=== PATIENT | male | born 1990 | race Two or more races ===

== ENCOUNTER 2024-04-25 15:23 | Emergency (ER) | payer MEDICAID ==
[~2024-04-25] VITALS: Ht 182.9 cm; Wt 59.0 kg
[2024-04-25 15:40] VITALS: TEMP 98.3
[2024-04-25] MEDS ORDERED: ONDANSETRON HCL/PF 4 MG/2 ML VIAL ONE (16:08)
[2024-04-25] MEDS: ONDANSETRON HCL/PF 4 MG/2 ML VIAL IVP ONE (16:10)
[2024-04-25] MEDS: IV NS 0.9% 1,000 ML BAG IV ONE (16:10)
[2024-04-25 16:23] LABS: BASOPHILS % (AUTO) 0.2 % (0.0-2.0); EOSINOPHILS % (AUTO) 0.1 % (0.0-6.0); HEMATOCRIT 46 % (39-51); HEMOGLOBIN 16.1 g/dL (13.5-17.5); LYMPHOCYTES # (AUTO) 0.1 K/uL (0.8-4.8); LYMPHOCYTES % (AUTO) 1.3 % (20.0-44.0); MEAN CORPUSCULAR HEMOGLOBIN 30 PG (26.0-33.0); MEAN CORPUSCULAR HGB CONC 35 g/dl (31.0-36.0); MEAN CORPUSCULAR VOLUME 86 fL (80-96); MONOCYTES # (AUTO) 0.5 K/uL (0.1-1.30); MONOCYTES % (AUTO) 4.9 % (2.0-12.0); NEUTROPHILS # (AUTO) 9.7 K/uL (1.8-8.9); NEUTROPHILS % (AUTO) 93.5 % (43.0-81.0); PLATELET COUNT (AUTO) 170 K/uL (150-450); RED BLOOD CELL COUNT(AUTO) 5.39 MIL/uL (4.5-6.0); RED CELL DISTRIBUTION WIDTH 13.5 % (11.5-15.0); WHITE BLOOD COUNT (AUTO) 10.4 K/uL (4.3-11.0)
[2024-04-25 16:36] LABS: BILIRUBIN,DIRECT 0.2 mg/dL (0.0-0.2); BILIRUBIN,TOTAL 0.7 mg/dL (0.2-1.0); CALCIUM, SERUM 8.8 mg/dL (8.5-10.1); CREATININE 1.2 mg/dL (0.6-1.3); POTASSIUM 3.8 mmol/L (3.5-5.1)
[2024-04-25] MEDS ORDERED: ACETAMINOPHEN 325 MG TABLET ONE (17:30)
[2024-04-25] MEDS: ACETAMINOPHEN 325 MG TABLET PO ONE (17:30)
[2024-04-25 17:31] LABS: APPEARANCE,URINE CLEAR (CLEAR); BILIRUBIN,URINE NEGATIVE (NEGATIVE); BLOOD, URINE NEGATIVE Ery/uL (NEGATIVE); COLOR,URINE YELLOW (YELLOW); KETONES,URINE 2+ mg/dL (NEGATIVE); LEUKOCYTE ESTERASE ,URINE NEGATIVE (NEGATIVE); NITRITE, URINE NEGATIVE (NEGATIVE); PROTEIN,URINE NEGATIVE (NEGATIVE); UGLUCOSE NEGATIVE (NEGATIVE); UROBILINOGEN,URINE 0.2 EU/dL (0.2)
[2024-04-25 17:41] LABS: MUCUS,URINE Many /LPF (None Seen); RBC,URINE 0-2 /HPF (0-2)
[2024-04-25 17:42] LABS: ADD URINE CULTURE NO; BACTERIA,URINE Rare /HPF (None Seen); SQUAMOUS EPITHELIAL CELL,UR None Seen /HPF (None Seen); WBC,URINE 0-2 /HPF (0-3)
[2024-04-25] MEDS ORDERED: ONDA4TAB5 PO (17:49)
[2024-04-25] MEDS ORDERED: DICYCLOMINE HCL 10 MG CAPSULE PO ONE (19:43)
[2024-04-25] MEDS ORDERED: METOCLOPRAMIDE HCL 10 MG/2 ML VIAL ONE (19:43)
[2024-04-25] MEDS: DICYCLOMINE HCL 10 MG CAPSULE PO ONE (19:44)
[2024-04-25] MEDS: METOCLOPRAMIDE HCL 10 MG/2 ML VIAL IV ONE (19:44)
[2024-04-26 03:50] VITALS: BP 112/68; O2SAT 100
== END 2024-04-25 20:30 | disposition home or self-care (01) ==
LOC: ER 15:26
DX: A05.9 Bacterial foodborne intoxication, unspecified (principal); A08.4 Viral intestinal infection, unspecified; K58.9 Irritable bowel syndrome, unspecified; Z88.2 Allergy status to sulfonamides; Z60.2 Problems related to living alone
CPT/HCPCS: 99284; 96374; 96361; 96375; 85025; 80048; 83690; 80076; 81001; 36415; J2765; J2405; J7030 ×2